=== PATIENT | male | born 1990 | race Caucasian/White ===

== ENCOUNTER 2016-08-06 22:00 | Emergency (ER) | payer BC ==
[2016-08-06] MEDS ORDERED: IBUPROFEN 800 MG TABLET PO ONE (22:07)
--- NOTE | 2016-08-06 22:07 | ER Document Report ---
ED Medical Screen (RME) - General Stated Complaint: SPIDER BITE Time seen by provider: 22:04 Mode of Arrival: Ambulatory Information source: Patient Notes: 25-year-old male presents to ED for spider bite to the right abdomen around 11: 00 this morning. The area is now red with a small black spot in the center of it. Patient states it was a little black spider. Patient states his has a lot of pain right where it spider bit him with a little knot. I have greeted and performed a rapid initial assessment of this patient. A comprehensive ED assessment and evaluation of the patient, analysis of test results and completion of medical decision making process will be conducted by an additional ED providers. TRAVEL OUTSIDE OF THE [place] IN LAST 30 DAYS: No Past Medical History - Immunizations Hx Diphtheria, Pertussis, Tetanus Vaccination: Yes
[2016-08-06] MEDS ORDERED: OXYCODONE-ACETAMINOPHEN 5-325 MG TABLET PO ONE (23:20)
[2016-08-06] MEDS ORDERED: LIDOCAINE 1% INJ-PF (10 MG/ML) 30 ML SDV INJ ONE (23:20)
--- NOTE | 2016-08-06 23:20 | ER Document Report ---
ED Skin Rash/Insect Bite/Abscs - General Chief Complaint: Insect Bite Stated Complaint: SPIDER BITE Mode of Arrival: Ambulatory Information source: Patient Notes: Patient is a 25-year-old male who presents to the ER today after getting bitten on the right hip by a spider 4-5 hours ago. Patient states that he did see the black spider bite him and killed it. He states that it did not have anything red on and he doesn't think it was a black . He states that he started noticing it getting more painful and swollen, red over the next couple of hours and is very concerned at this time. He denies any nausea, vomiting, fever, chills or drainage from the area, history of MRSA. TRAVEL OUTSIDE OF THE [place] IN LAST 30 DAYS: No - Related Data Allergies/Adverse Reactions: No Known Allergies Allergy (Unverified 08/06/16 22:06) Past Medical History - General Information source: Patient - Social History Smoking Status: Never Smoker Frequency of alcohol use: None Drug Abuse: None Family History: None Renal/ Medical History: Denies: Hx Peritoneal Dialysis - Immunizations Hx Diphtheria, Pertussis, Tetanus Vaccination: Yes Review of Systems - Review of Systems Constitutional: No symptoms reported EENT: No symptoms reported Cardiovascular: No symptoms reported Respiratory: No symptoms reported Gastrointestinal: No symptoms reported Genitourinary: No symptoms reported Male Genitourinary: No symptoms reported Musculoskeletal: No symptoms reported Skin: See HPI Hematologic/Lymphatic: No symptoms reported Neurological/Psychological: No symptoms reported Physical Exam - Vital signs Vitals: Temp Pulse Resp BP Pulse Ox 98.3 F 67 16 142/88 H 97 08/06/16 22:05 08/06/16 22:05 08/06/16 22:05 08/06/16 22:05 08/06/16 22:05 - Notes Notes: PHYSICAL EXAMINATION: GENERAL: Well-appearing and in no acute distress. HEAD: Atraumatic, normocephalic. EYES: Pupils equal round and reactive to light, extraocular movements intact, sclera anicteric, conjunctiva are normal. NECK: Normal range of motion, supple without lymphadenopathy LUNGS: CTAB and equal. No wheezes rales or rhonchi. HEART: Regular rate and rhythm without murmurs EXTREMITIES: Normal range of motion, no pitting edema. No cyanosis. NEUROLOGICAL: Cranial nerves grossly intact. Normal sensory/motor exams. PSYCH: Normal mood, normal affect. SKIN: Warm, Dry, normal turgor, 4 cm x 2 cm indurated erythematous area to the right anterior hip, tender to palpation, no drainage, fluctuance noted Course - Re-evaluation Re-evalutation: 08/07/16 00:16 Abscess was incised and drained successfully. - Vital Signs Vital signs: Temp Pulse Resp BP Pulse Ox 98.3 F 67 16 142/88 H 97 08/06/16 22:05 08/06/16 22:05 08/06/16 22:05 08/06/16 22:05 08/06/16 22:05 Procedures - Incision and Drainage Right Anterior Hip Time completed: :17 Type: Simple Anesthetic type: 1% Lidocaine mL's of anesthetic: 2 Blade size: 11 I&D procedure: Betadine prep applied Incision Method: Incision made by scalpel Amount/type of drainage: purulent drainage and some blood Discharge - Discharge Clinical Impression: Abscess Condition: Stable Disposition: HOME, SELF-CARE Instructions: Post Incision and Drainage, Oral Narcotic Medication ([facility]), Trimethoprim-Sulfa ([facility]), Abscess ([facility]) Additional Instructions: Return immediately for any new or worsening symptoms. Follow up with primary care provider, call tomorrow to make followup appointment. Prescriptions: Sulfamethoxazole/Trimethoprim [Bactrim Ds Tablet] 1 each PO BID #14 tablet
[2016-08-06] MEDS ORDERED: SULFAMETHOXAZOLE/TRIMETHOPRIM 800-160 MG TABLET PO ONE (23:21)
[2016-08-07] MEDS ORDERED: HYDROCODONE/ACETAMINOPHEN 5-325 MG 6 TAB/DSPK PO PRN (00:19)
[2016-08-07 00:39] VITALS: BP 140/80
== END 2016-08-07 00:41 | disposition home or self-care (01) ==
LOC: ER 22:00
PROC: 0H9HXZZ Drainage of Right Upper Leg Skin, External Approach (ICD-10-PCS; principal; 2016-08-06)
DX: S70.261A Insect bite (nonvenomous), right hip, initial encounter (principal); L02.415 Cutaneous abscess of right lower limb; W57.XXXA Bitten or stung by nonvenomous insect and other nonvenomous arthropods, initial encounter
CPT/HCPCS: 99281; 10060; J3490

== ENCOUNTER 2016-10-05 16:32 | Emergency (ER) | payer BC ==
[2016-10-05 17:23] VITALS: BP 124/70
--- NOTE | 2016-10-05 17:39 | ER Document Report ---
ED Medical Screen (RME) - General Stated Complaint: SORE THROAT,HEADACHE,FEVER Time seen by provider: 17:38 Mode of Arrival: Ambulatory Information source: Patient Notes: 25-year-old male presents to ED for sore throat and fever headache and no energy. He states he's also had runny nose or cough. He states he has to this morning states he was witnessed by his mom. States he was moving a dresser did and he passed out and fell on the ground itching states she does not have any injuries. I have greeted and performed a rapid initial assessment of this patient. A comprehensive ED assessment and evaluation of the patient, analysis of test results and completion of medical decision making process will be conducted by an additional ED providers. TRAVEL OUTSIDE OF THE [place] IN LAST 30 DAYS: No - Related Data Allergies/Adverse Reactions: No Known Allergies Allergy (Unverified 08/06/16 22:06) Past Medical History Renal/ Medical History: Denies: Hx Peritoneal Dialysis - Immunizations Hx Diphtheria, Pertussis, Tetanus Vaccination: Yes Physical Exam - Vital signs Vitals: Temp Pulse Resp BP Pulse Ox 98.9 F 68 14 124/70 98 10/05/16 17:23 10/05/16 17:23 10/05/16 17:23 10/05/16 17:23 10/05/16 17:23 Course - Vital Signs Vital signs: Temp Pulse Resp BP Pulse Ox 98.9 F 68 14 124/70 98 10/05/16 17:23 10/05/16 17:23 10/05/16 17:23 10/05/16 17:23 10/05/16 17:23
[2016-10-05] MEDS ORDERED: IBUPROFEN 800 MG TABLET PO ONE (17:47)
[2016-10-05] MEDS ORDERED: ONDANSETRON 4 MG TAB.RAPDIS PO ONE (17:47)
== END 2016-10-05 22:10 | disposition left against medical advice (07) ==
LOC: ER 16:32
DX: J02.9 Acute pharyngitis, unspecified (principal); R51 Headache; R50.9 Fever, unspecified
CPT/HCPCS: 99281; 87070; 87880; 87804; S0119

== ENCOUNTER 2016-11-12 14:45 | Emergency (ER) | payer BC ==
[2016-11-12] MEDS ORDERED: IBUPROFEN 600 MG TABLET PO ONE (15:50)
--- NOTE | 2016-11-12 15:52 | ER Document Report ---
ED Extremity Problem, Lower - General Chief Complaint: Knee Injury Stated Complaint: KNEE INJURY Mode of Arrival: Ambulatory Information source: Patient TRAVEL OUTSIDE OF THE [place] IN LAST 30 DAYS: No - HPI Patient complains to provider of: Pain Location: Knee Occurred: Yesterday Notes: Patient arrives with complaints of right knee pain. He states he was playing on a slip and slide yesterday when he got into the slip and slide he hyperflexed his knee and has had pain in the posterior aspect of the knee since then. He states that he works 12 hour shift yesterday and then when he woke up this morning he was having some mild pain in the left knee. His main complaint is the right knee. He denies any numbness, tingling, weakness. The pain is worse with movement and walking. It seems to be better with rest. He denies any redness, fever, nausea, vomiting, diarrhea. He denies any chest pressure. He denies any other injuries or any other complaints at this time. - Related Data Allergies/Adverse Reactions: No Known Allergies Allergy (Verified 11/12/16 15:13) Past Medical History - Social History Smoking Status: Unknown if Ever Smoked Family History: None Patient has suicidal ideation: No Patient has homicidal ideation: No Renal/ Medical History: Denies: Hx Peritoneal Dialysis Surgical Hx: Negative - Immunizations Hx Diphtheria, Pertussis, Tetanus Vaccination: Yes Review of Systems - Review of Systems -: Yes All other systems reviewed and negative Physical Exam - Vital signs Vitals: Temp Pulse Resp BP Pulse Ox 98.1 F 64 14 113/85 98 11/12/16 15:13 11/12/16 15:13 11/12/16 15:13 11/12/16 15:13 11/12/16 15:13 - Notes Notes: GENERAL: alert, cooperative, nontoxic, no distress. HEAD: normocephalic, atraumatic EYES: conjunctiva pink without discharge, no external redness or swelling. EARS: no external swelling, no external redness NOSE: atraumatic, no external swelling MOUTH/THROAT: mucous membranes moist and pink NECK: soft, supple, full range of motion, no meningismus. CHEST: no distress, lungs clear and equal throughout. No wheezing, rales, rhonchi. CARDIAC: regular rate and rhythm, no murmur, normal capillary refill, normal pulses. BACK: full range of motion, no CVA tenderness. EXTREMITIES: Patient has full range of motion of both knees. He has no tenderness to palpation of the left knee with no ligament instability and a normal neurovascular exam distally. The right knee shows mild tenderness to palpation to the medial and posterior aspect. There is no significant effusion. He has normal straight leg raise. He has no obvious ligament instability on exam. Normal anterior and posterior drawer. He has no redness, no swelling. Normal neurovascular exam distally. Remainder of the possible skull exam is unremarkable. NEURO: alert and oriented 3, no focal deficits, full range of motion of all extremities. PYSCH: appropriate mood, affect. Patient is cooperative. SKIN: pink, warm, dry, no rash. Course - Re-evaluation Re-evalutation: 11/12/16 16:54 Patient is nontoxic. Stable vitals. Injured his knee while sliding on a slip and slide yesterday when he hyperflexed his knee. He has had continuous right knee pain. He states when he woke up this morning his left knee was slightly painful but not half as bad as the right. His normal neurovascular exam. He is no ligament instability on exam. No sign of infection. No fever. Patient was placed in an Eduardo wrap as needed for comfort. He has crutches at home he can use as needed for comfort. [facility] Follow up with his family doctor or so if not better in one week, sooner for increased pain, fever, redness, any further concerns. The patient is noted to have elevated blood pressure during today's emergency department visit. The patient was informed of this finding. The patient was instructed that this may be related to pre-hypertension and requires further evaluation with a primary care provider. The patient has no hypertensive symptoms at this time. The patient's emergency department workup and current diagnosis were explained to the patient and or family. Follow-up instructions were provided. Medications if prescribed were discussed. Instructions for when to return to the emergency department including specific worrisome symptoms were discussed with the patient and/or family. - Vital Signs Vital signs: Temp Pulse Resp BP Pulse Ox 98.1 F 64 14 113/85 98 11/12/16 15:13 11/12/16 15:13 11/12/16 15:13 11/12/16 15:13 11/12/16 15:13 Discharge - Discharge Clinical Impression: Right knee sprain Qualifiers: Encounter type: initial encounter Involved ligament of knee: other ligament Qualified Code(s): S83.8X1A - Sprain of other specified parts of right knee, initial encounter Condition: Stable Disposition: HOME, SELF-CARE Instructions: Use of Crutches ([facility]), Ice & Elevation ([facility]), Sprained Knee ([facility]) Additional Instructions: Take medications as prescribed. He may also take thousand milligrams of Tylenol every 6 hours as needed for pain. Rest, follow-up if not better in one week, sooner for increased pain, fever, redness, numbness, tingling, weakness, any further concerns. Your blood pressure was elevated during today's visit. Have this rechecked with your doctor. Prescriptions: Diclofenac Sodium [Voltaren] 75 mg PO BID #20 tablet.dr Forms: Elevated Blood Pressure Referrals: RUFUS HINES DO [ACTIVE STAFF] - Follow up in 1 week
[2016-11-12 17:22] VITALS: BP 130/79
== END 2016-11-12 17:21 | disposition home or self-care (01) ==
LOC: ER 14:45
DX: S83.8X1A Sprain of other specified parts of right knee, initial encounter (principal); M25.561 Pain in right knee; X58.XXXA Exposure to other specified factors, initial encounter
CPT/HCPCS: 99283

== ENCOUNTER 2017-06-23 09:48 | Emergency (ER) | payer OTHER ==
[2017-06-23] MEDS ORDERED: IBUPROFEN 600 MG TABLET PO ONE (09:53)
[2017-06-23] MEDS ORDERED: DIPH/PERTUSS(ACELL)/TETANUS VAC/PF 0.5 ML SYR (>=10YO) IM ONE (09:53)
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
[2017-06-23 10:24] LABS: ABSOLUTE EOSINOPHILS # (AUTO) 0.1 10^3/uL (0.0-0.6); ABSOLUTE LYMPHOCYTES (AUTO) 1.8 10^3/uL (0.5-4.7); ABSOLUTE MONOCYTES (AUTO) 0.9 10^3/uL (0.1-1.4); ABSOLUTE NEUT (AUTO) 5.4 10^3/uL (1.7-8.2); BASOPHILS % (AUTO) 0.3 % (0-2); EOSINOPHILS % (AUTO) 1.6 % (0-6); HEMATOCRIT 45.3 % (37.9-51.0); HEMOGLOBIN 15.4 g/dL (13.5-17.0); HGB HCT DIFFERENCE 0.9; LYMPHOCYTES % (AUTO) 22.1 % (13-45); MEAN CORPUSCULAR HEMOGLOBIN 28.8 pg (27.0-33.4); MEAN CORPUSCULAR HGB CONC 33.9 g/dL (32.0-36.0); MEAN CORPUSCULAR VOLUME 85 fl (80-97); MONOCYTES % (AUTO) 11.2 % (3-13); RED BLOOD COUNT 5.33 10^6/uL (4.35-5.55); RED CELL DISTRIBUTION WIDTH 13.1 % (11.5-14.0); SEGMENTED NEUTROPHILS % (AUTO) 64.8 % (42-78); WHITE BLOOD COUNT 8.3 10^3/uL (4.0-10.5)
[2017-06-23 10:39] LABS: ANION GAP 14 (5-19); BLOOD UREA NITROGEN 20 mg/dL (7-20); CALCIUM 10.1 mg/dL (8.4-10.2); CARBON DIOXIDE 27 mmol/L (22-30); CHLORIDE 102 mmol/L (98-107); CREATININE RESULT 0.76 mg/dL (0.52-1.25); GLUCOSE 95 mg/dL (75-110); POTASSIUM 4.4 mmol/L (3.6-5.0); SODIUM 142.6 mmol/L (137-145)
[2017-06-23 11:36] VITALS: BP 137/86
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
--- NOTE | 2017-06-23 12:00 | EKG REPORT ---
SEVERITY:- ABNORMAL ECG - SINUS ARRHYTHMIA, RATE 63-76 NONSPECIFIC T ABNORMALITIES, LATERAL LEADS : Confirmed by: Jere Gasca 23-Jun-2017 11:59:51
== END 2017-06-23 11:35 | disposition home or self-care (01) ==
LOC: ER 09:48
DX: S06.0X1A Concussion with loss of consciousness of 30 minutes or less, initial encounter (principal); S20.219A Contusion of unspecified front wall of thorax, initial encounter; R07.9 Chest pain, unspecified; R51 Headache; R06.02 Shortness of breath; V87.7XXA Person injured in collision between other specified motor vehicles (traffic), initial encounter; F17.200 Nicotine dependence, unspecified, uncomplicated
CPT/HCPCS: 36415; 70450; 71260; 72125; 74177; 80048; 84484; 85025; 90471; 90715; 93005; 93010; 99285

== ENCOUNTER 2020-07-13 22:13 | Emergency (ER) | payer OTHER ==
[2020-07-13] MEDS ORDERED: NORMAL SALINE 1000 ML 1,000 ML IV ONE (23:56)
[2020-07-13] MEDS ORDERED: ONDANSETRON HCL INJ/PF 4 MG/2 ML SDV IV ONE (23:56)
--- NOTE | 2020-07-13 23:59 | ER Document Report ---
ED Medical Screen (RME) - General Chief Complaint: Flu Symptoms Stated Complaint: FEVER, BODY ACHES Time Seen by Provider: 07/13/20 23:52 Mode of Arrival: Ambulatory Information source: Patient Notes: HPI; 29-year-old male presents to the emergency room complaining of fever of 101.8, chills, abdominal burning and diarrhea for the past 2 days. States has had 3 episodes of diarrhea today. Has been taking Tylenol with minimal relief. States he is now not able to tolerate anything p.o. No bad food he can think of. No recent antibiotics. No known COVID-19 exposure. PE: Alert and oriented x3. Lungs: Clear to auscultation without rales, rhonchi, wheezes. Heart: Regular rate rhythm without murmurs, rubs, gallops. Patient was evaluated during the global COVID-19 pandemic and that diagnosis was suspected/considered upon their initial presentation. Their evaluation, treatment and testing was consistent with current guidelines for patients who presents with complaints or systems that may be related to COVID-19. I have greeted and performed a rapid initial assessment of this patient. A comprehensive ED assessment and evaluation of the patient, analysis of test results and completion of the medical decision making process will be conducted by additional ED providers. I have specifically instructed the patient or family members with the patient to immediately return to any nursing staff should anything change in the patient's condition or with their chief complaint. TRAVEL OUTSIDE OF THE [place] IN LAST 30 DAYS: No - Related Data Allergies/Adverse Reactions: No Known Allergies Allergy (Verified 06/23/17 11:23) Past Medical History Renal/ Medical History: Denies: Hx Peritoneal Dialysis - Immunizations Hx Diphtheria, Pertussis, Tetanus Vaccination: Yes Physical Exam - Vital signs Vitals: Temp Pulse Resp BP Pulse Ox 97.7 F 87 16 134/87 H 98 07/13/20 22:32 07/13/20 22:32 07/13/20 22:32 07/13/20 22:32 07/13/20 22:32 Course - Vital Signs Vital signs: Temp Pulse Resp BP Pulse Ox 97.7 F 87 16 134/87 H 98 07/13/20 22:32 07/13/20 22:32 07/13/20 22:32 07/13/20 22:32 07/13/20 22:32
[2020-07-14 02:20] LABS: ABSOLUTE EOSINOPHILS # (AUTO) 0.1 10^3/uL (0.0-0.6); ABSOLUTE MONOCYTES (AUTO) 0.9 10^3/uL (0.1-1.4); ABSOLUTE NEUT (AUTO) 7.2 10^3/uL (1.7-8.2); BASOPHILS % (AUTO) 0.3 % (0-2); EOSINOPHILS % (AUTO) 1.4 % (0-6); HEMATOCRIT 42.5 % (37.9-51.0); HEMOGLOBIN 14.1 g/dL (13.5-17.0); LYMPHOCYTES % (AUTO) 19.5 % (13-45); MEAN CORPUSCULAR HGB CONC 33.1 g/dL (32.0-36.0); MEAN CORPUSCULAR VOLUME 85 fl (80-97); MONOCYTES % (AUTO) 8.5 % (3-13); PLATELET COUNT 252 10^3/uL (150-450); RED BLOOD COUNT 5.02 10^6/uL (4.35-5.55); RED CELL DISTRIBUTION WIDTH 13.4 % (11.5-14.0); SEGMENTED NEUTROPHILS % (AUTO) 70.3 % (42-78); TOTAL CELLS COUNTED % (AUTO) 100 %; WHITE BLOOD COUNT 10.2 10^3/uL (4.0-10.5)
[2020-07-14 02:36] LABS: ALBUMIN 4.9 g/dL (3.5-5.0); ALKALINE PHOSPHATASE 69 U/L (38-126); ANION GAP 9 (5-19); ASPARTATE AMINO TRANSFERASE 19 U/L (17-59); BILIRUBIN,DIRECT 0.2 mg/dL (0.0-0.4); BILIRUBIN,TOTAL 0.6 mg/dL (0.2-1.3); BLOOD UREA NITROGEN 10 mg/dL (7-20); CALCIUM 10.2 mg/dL (8.4-10.2); CARBON DIOXIDE 31 mmol/L (22-30); CHLORIDE 100 mmol/L (98-107); GLUCOSE 107 mg/dL (75-110); POTASSIUM 4.3 mmol/L (3.6-5.0); TOTAL PROTEIN 8.1 g/dL (6.3-8.2)
[2020-07-14 02:38] LABS: APPEARANCE,URINE CLEAR; BILIRUBIN,URINE NEGATIVE (NEGATIVE); COLOR,URINE YELLOW; GLUCOSE, URINE NEGATIVE (NEGATIVE); KETONES,URINE NEGATIVE (NEGATIVE); LEUKOCYTE ESTERASE,URINE NEGATIVE (NEGATIVE); NITRITE,URINE NEGATIVE (NEGATIVE); PROTEIN,URINE NEGATIVE (NEGATIVE); URINE SPECIFIC GRAVITY 1.029; UROBILINOGEN,URINE NEGATIVE mg/dL (<2.0)
[2020-07-14] MEDS ORDERED: ONDANSETRON HCL INJ/PF 4 MG/2 ML SDV ONE (05:28)
[2020-07-14 07:13] LABS: A TYPE INFLUENZA AG NEGATIVE (NEGATIVE); B INFLUENZA AG NEGATIVE (NEGATIVE)
--- NOTE | 2020-07-14 07:20 | ER Document Report ---
ED Flu Like - General Chief Complaint: Nausea/Vomiting Stated Complaint: FEVER, BODY ACHES Time Seen by Provider: 07/13/20 23:52 Mode of Arrival: Ambulatory Notes: Patient is a 29-year-old male presents to the emergency department with a chief complaint of a fever, chills, left upper abdominal pain and diarrhea for the past 2 days. States that he had a temperature of 101.8 at home. He has been taking Tylenol. States that he feels like the same way as when he had a stomach ulcer and had to have blood transfusions. Denies any hematochezia, hematic emesis, or melena stools. Patient does not currently take any medications. States that he has not been taking Carafate, but is asking if he can be placed back on Carafate. Denies any contact with anyone who tested positive for COVID- 19. Patient does work at [employer]. TRAVEL OUTSIDE OF THE [place] IN LAST 30 DAYS: No - Related Data Allergies/Adverse Reactions: No Known Allergies Allergy (Verified 06/23/17 11:23) Past Medical History - General Information source: Patient - Social History Smoking Status: Former Smoker Frequency of alcohol use: Occasional Drug Abuse: None Family History: None Patient has homicidal ideation: No Renal/ Medical History: Denies: Hx Peritoneal Dialysis - Immunizations Hx Diphtheria, Pertussis, Tetanus Vaccination: Yes Review of Systems - Review of Systems Notes: REVIEW OF SYSTEMS: CONSTITUTIONAL : Denies recent illness. Denies recent unintentional weight loss. See HPI. EENT: Denies eye, ear, throat, or mouth pain, discharge, or symptoms. Denies nasal or sinus congestion. CARDIOVASCULAR: Denies chest pain. RESPIRATORY: Denies, cough, congestion, shortness of breath, or difficulty breathing. GASTROINTESTINAL: See HPI. GENITOURINARY: Denies difficulty urinating, burning, blood in urine, urgency or frequency. MUSCULOSKELETAL: Denies neck and back pain. Denies joint pain or swelling. SKIN: Denies rash, itchiness, or lesions HEMATOLOGIC : Denies easy bruising or bleeding. LYMPHATIC: Denies swollen, painful, enlarged glands. NEUROLOGICAL: Denies no numbness or tingling denies weakness. Denies headache. Denies altered mental status. Denies alteration in speech. PSYCHIATRIC: Denies stress, anxiety, alteration in sleep patterns, or depression. All other systems reviewed and negative. Physical Exam - Vital signs Vitals: Temp Pulse Resp BP Pulse Ox 97.7 F 87 16 134/87 H 98 07/13/20 22:32 07/13/20 22:32 07/13/20 22:32 07/13/20 22:32 07/13/20 22:32 - Notes Notes: PHYSICAL EXAMINATION: GENERAL: Appears well, healthy, well-nourished, no acute distress. HEAD: Normocephalic, atraumatic. EYES: PERRL, conjunctiva normal, all extraocular movements intact, sclera nonicteric ENT: Moist mucous membranes. NECK: Supple, no noticeable swelling, redness, rash. Normal range of motion. LUNGS: Equal breath sounds bilaterally and clear to auscultation. No wheezes rales or rhonchi. CARDIOVASCULAR: S1-S2, regular rate, regular rhythm. Radial pulses 2+, normal. ABDOMEN: Normoactive bowel sounds. Soft, nontender, no guarding, no rebound tenderness, and no masses palpated. EXTREMITIES: Normal strength and range of motion, no pitting or edema. No cyanosis. NEUROLOGICAL: Moves all extremities upon command. Strength 5/5 in all extremities. PSYCH: Normal mood, normal affect. SKIN: Warm, dry. No rash, lesions, ulcerations noted. Normal skin turgor. Course - Re-evaluation Re-evalutation: 07/14/20 07:21 Patient was initially convinced that he had another stomach ulcer. He denied any melena stools. Since he denied any melena stools. I told him the only way to find out if he truly does have a GI bleed/stomach ulcer is to do a rectal exam to check for Hemoccult. Patient refused to have this done. Hematology is unremarkable. Chemistries are also unremarkable. Urinalysis is normal. Flu test is negative. The patient was evaluated during the global COVID-19 pandemic and that diagnosis was suspected/considered upon their initial presentation. Their evaluation, treatment and testing was consistent with current guidelines for patients who present with complaints or symptoms that may be related to COVID-19. We will give the patient a Zofran Dosepak. States that he feels better. Follow-up precautions were given. Verbal discharge instructions were g iven to the patient. They verbalized understanding. They are stable for discharge. 1 - Vital Signs Vital signs: Temp Pulse Resp BP Pulse Ox 97.7 F 69 16 111/69 100 07/14/20 07:51 07/14/20 07:51 07/14/20 07:51 07/14/20 07:51 07/14/20 07:51 - Laboratory Results Result Diagrams: 07/14/20 01:56 07/14/20 01:56 Laboratory Results Interpreted: 07/14/20 01:56 Carbon Dioxide 31 H Critical Laboratory Results Reviewed: No Critical Results - Radiology Results Critical Radiology Results Reviewed: No Critical Results Discharge - Discharge Clinical Impression: Flu-like symptoms, Person under investigation for COVID-19 Condition: Stable Disposition: HOME, SELF-CARE Instructions: COVID-19 Guidance for Persons Under Investigation Additional Instructions: You were seen today in the emergency department for nausea, vomiting, and diarrhea. Your labs are normal. Take Zofran as needed. Take 1-2 tablets every 4-6 hours as needed. As a person under investigation for COVID-19, the [place] Department of Health and Human Services (division on public health) advises you to adhere to the following guidance until your test results are reported to you. If your test result is positive, you will receive additional information from your provider and your local health department at that time. Remain at home until you are cleared by the health provider or public health authorities. Keep a log of visitors to your home, notify any visitors to your home of your isolation status. If you plan to move to a new address or leave the [facility], notify the local health department in your [facility]. Call your Doctor or seek care if you have an urgent medical need. Before seeking medical care, call him to get instructions from the provider before arriving at the medical office, clinic, or hospital. Notify them that you are being tested for the virus (COVID-19) so that arrangements can be made, as necessary, to prevent transmission to others in the healthcare setting. Next, notify the local health department in your [facility]. Prescriptions: Sucralfate [Carafate 1 gm Tablet] 1 gm PO ACHS #120 tablet Ondansetron [Zofran Odt 4 mg Tablet] 1 - 2 tab PO Q4H PRN #15 tab.rapdis PRN Reason: For Nausea/Vomiting
[2020-07-14] MEDS ORDERED: ONDANSETRON ODT 4 MG TAB (6 TAB/ER DISP) PO PRN (07:21)
[2020-07-14 07:52] VITALS: BP 111/69
== END 2020-07-14 07:53 | disposition home or self-care (01) ==
LOC: ER 22:13
DX: J00 Acute nasopharyngitis [common cold] (principal); R50.9 Fever, unspecified; M79.10 Myalgia, unspecified site; R11.2 Nausea with vomiting, unspecified; R10.12 Left upper quadrant pain; Z20.828 Contact with and (suspected) exposure to other viral communicable diseases
CPT/HCPCS: 99284; 96361; 96374; 36415; 83690; 85025; 87635; 80053; 81001; 87804; J2405; J7030; C9803